=== PATIENT | female | born 1955 | race Caucasian/White ===

== ENCOUNTER 2018-08-24 13:46 | Emergency (ER) | payer BC ==
[2018-08-24] MEDS ORDERED: Levalbuterol 0.63MG/3ML NEB* UNIT OF USE INH ONE (14:06)
[2018-08-24] MEDS ORDERED: Albuterol/Ipratropium NEB.SOL* Albuterol 2.5 MG/Ipratropium 0.5 MG 3 ML ONE (14:08)
[2018-08-24] MEDS ORDERED: Albuterol/Ipratropium NEB.SOL* Albuterol 2.5 MG/Ipratropium 0.5 MG 3 ML INH ONE (14:13)
--- NOTE | 2018-08-24 14:15 | UC ---
Respiratory Complaint HPI - HPI Summary HPI Summary: Started w/ 3 days of cold/flu symptoms and then started w/ sob and cough assoc. w/ mucus. Had trouble getting air and clearing her throat. pt is heavy smoker did not get flu shot this year. last cigarette 4 days ago. - History of Current Complaint Stated Complaint: SOB,COUGH Time Seen by Provider: 08/24/18 14:13 Hx Obtained From: Patient ?: No Onset/Duration: Sudden Onset - Allergies/Home Medications Allergies/Adverse Reactions: Allergies Allergy/AdvReac Type Severity Reaction Status Date / Time sodium pentithal Allergy Unknown Unknown Uncoded 04/22/16 09:17 Reaction Details PMH/Surg Hx/FS Hx/Imm Hx Previously Healthy: Yes Respiratory History: Bronchitis - Surgical History Surgical History: None - Family History Known Family History: Positive: Hypertension, Diabetes - Social History Alcohol Use: None Substance Use Type: None Smoking Status (MU): Current Every Day Smoker Type: Cigarettes Amount Used/How Often: 1/4 ppd Length of Time of Smoking/Using Tobacco: 25 + YEARS Have You Smoked in the Last Year: Yes Review of Systems All Other Systems Reviewed And Are Negative: Yes Constitutional: Negative: Fever, Chills, Fatigue Skin: Negative: Rash ENT: Positive: Other - 'LOTS OF PHLEGM IN THROAT THAT MAKES ME GAG'. Respiratory: Positive: Shortness Of Breath, Cough Cardiovascular: Negative: Chest Pain Neurological: Negative: Headache, Weakness Physical Exam Triage Information Reviewed: Yes Appearance: No Pain Distress, Thin Vital Signs Reviewed: Yes Respiratory: Positive: No accessory muscle use, Respiratory distress, Decreased breath sounds, Wheezing Cardiovascular Exam: Normal Neurological: Positive: Alert, Other: - able to speak slowly as she caught her breath Skin: Negative: Rashes Respiratory Course/Dx - Course Course Of Treatment: SOB and cough in a heavy smoker acute. Started duoneb quickly and nasal O2 but her oxygen level never improved past 91-92. It was thought she should go to ED via ambulance as they could care for her better there. Pt. was adamant that she did not want to go due to cost. I explained ambulance is there to help her breath should it be too much for her. they could intubate her while driving to hospital should this be needed and keep her on oxygen. pt still declined and left AMA but will be going to ED. She verbalized understanding that her driving under this condition could lead to , worsening of symptoms, and harm of others. - Differential Dx/Diagnosis Differential Diagnosis/HQI/PQRI: Asthma, Bronchitis, Lower Resp Infection, Other - resp dis Provider Diagnosis: Hypoxia, Tachycardia, Shortness of breath Discharge - Sign-Out/Discharge Documenting (check all that apply): Patient Departure All imaging exams completed and their final reports reviewed: No Studies - Discharge Plan Condition: Fair Disposition: AGAINST MEDICAL ADVICE Patient Education Materials: Shortness of Breath (ED) Referrals: Philip Perera MD [Primary Care Provider] - Additional Instructions: please go to emergency room via ambulance. - Billing Disposition and Condition Condition: FAIR Disposition: Against Medical Advice
[2018-08-24 14:25] VITALS: BP 138/88
== END 2018-08-24 14:30 | disposition left against medical advice (07) ==
LOC: UCEAST 13:46
DX: R09.02 Hypoxemia (principal); R00.0 Tachycardia, unspecified; R06.02 Shortness of breath; Z88.4 Allergy status to anesthetic agent; F17.210 Nicotine dependence, cigarettes, uncomplicated
CPT/HCPCS: 99212; A9270-GY; G0463

== ENCOUNTER 2018-08-24 14:41 | Inpatient (IN) | payer BC ==
[2018-08-24] MEDS ORDERED: Albuterol/Ipratropium NEB.SOL* Albuterol 2.5 MG/Ipratropium 0.5 MG 3 ML INH ONE (15:17)
[2018-08-24] MEDS ORDERED: methylPREDNISolone 125 MG* 2 ML VIAL IV ONE (15:17)
--- NOTE | 2018-08-24 15:20 | ED ---
Shortness of Breath - HPI Summary HPI Summary: A 62 y/o female presents to the ED c/o SOB. In the ED room, the patient has pulse of 78 BPM, O2 saturation of 96%, and blood pressure of 168/93. As per triage, "Pt referred to ED by [facility] for c/o shortness of breath and hypoxia. Pt was given Duoneb tx at [facility] and says she actually feels much better". According to the patient, her symptoms started out with flu-like symptoms since such as coughing up clear flem, body aches, etc. She stated that around 1100 today she had difficult breathing. She noted that she has no history with COPD or asthma. Patient is a heavy everyday smoker as she smokes 3-10 cigarettes per day. She noted that she was given an treatment at which made her feel better. At she only received the treatment, no scans, screens, or any other medications were give. She noted that 2 years ago she had bronchopneumonia which feels similar to what she has now. - History of Current Complaint Chief Complaint: EDShortnessOfBreath Time Seen by Provider: 08/24/18 14:49 Hx Obtained From: Patient Onset/Duration: Sudden Onset, Lasting Days, Still Present Timing: Constant Current Severity: None Dyspnea At: Rest Aggrevating Factors: Nothing Alleviating Factors: Nothing Associated Signs & Symptoms: Cough (Productive) - Allergy/Home Medications Allergies/Adverse Reactions: Allergies Allergy/AdvReac Type Severity Reaction Status Date / Time sodium pentithal Allergy Unknown Unknown Uncoded 04/22/16 09:17 Reaction Details PMH/Surg Hx/FS Hx/Imm Hx Endocrine/Hematology History: Denies: Hx Diabetes, Hx Thyroid Disease Cardiovascular History: Denies: Hx Hypertension Respiratory History: Reports: Hx Pneumonia Denies: Hx Asthma, Hx Chronic Obstructive Pulmonary Disease (COPD) GI History: Denies: Hx Ulcer Sensory History: Reports: Hx Contacts or Glasses Opthamlomology History: Reports: Hx Contacts or Glasses - Cancer History Cancer Type, 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 - Surgical History Surgery Procedure, Year, and Place: CYST REMOVAL Infectious Disease History: No Infectious Disease History: Denies: Hx Clostridium Difficile, Hx Hepatitis, Hx Human Immunodeficiency Virus (HIV), Hx of Known/Suspected MRSA, Hx Shingles, Hx Tuberculosis, Hx Known/ Suspected VRE, Hx Known/Suspected VRSA, History Other Infectious Disease, Traveled Outside the [place] in Last 30 Days - Family History Known Family History: Positive: Hypertension, Diabetes - Social History Alcohol Use: None Substance Use Type: Reports: None Smoking Status (MU): Current Every Day Smoker Type: Cigarettes Amount Used/How Often: 1/4 ppd Length of Time of Smoking/Using Tobacco: 25 + YEARS Have You Smoked in the Last Year: Yes Review of Systems Negative: Fever Positive: Shortness Of Breath, Cough Positive: Myalgia - BODY ACHES All Other Systems Reviewed And Are Negative: Yes Physical Exam - Summary Physical Exam Summary: VITAL SIGNS: Reviewed. GENERAL: Patient is a well-developed and nourished female who is lying comfortable in the stretcher. Patient is not in any acute respiratory distress. HEAD AND FACE: No signs of trauma. No ecchymosis, hematomas or skull depressions. No sinus tenderness. EYES: PERRLA, EOMI x 2, No injected conjunctiva, no nystagmus. EARS: Hearing grossly intact. Ear canals and tympanic membranes are within normal limits. MOUTH: Oropharynx within normal limits. NECK: Supple, trachea is midline, no adenopathy, no JVD, no carotid bruit, no c- spine tenderness, neck with full ROM. CHEST: Symmetric, no tenderness at palpation LUNGS: Bilateral crackles and wheezing. CVS: Regular rate and rhythm, S1 and S2 present, no murmurs or gallops appreciated. ABDOMEN: Soft, non-tender. No signs of distention. No rebound no guarding, and no masses palpated. Bowel sounds are normal. EXTREMITIES: FROM in all major joints, no edema, no cyanosis or clubbing. NEURO: Alert and oriented x 3. No acute neurological deficits. Speech is normal and follows commands. SKIN: Dry and warm Triage Information Reviewed: Yes Vital Signs On Initial Exam: Initial Vitals Temp Pulse Resp BP Pulse Ox 98.4 F 83 18 149/62 92 08/24/18 14:44 08/24/18 14:44 08/24/18 14:44 08/24/18 14:44 08/24/18 14:44 Vital Signs Reviewed: Yes Diagnostics - Vital Signs Vital Signs Temp Pulse Resp BP Pulse Ox 08/24/18 14:55 93 08/24/18 14:52 73 168/93 90 08/24/18 14:44 98.4 F 83 18 149/62 92 - Laboratory Result Diagrams: 08/25/18 06:30 08/24/18 16:35 Lab Statement: Any lab studies that have been ordered have been reviewed, and results considered in the medical decision making process. - Radiology CXR Radiology Interpretation Completed By: Radiologist Summary of Radiographic Findings: No radiographic evidence of acute cardiopulmonary disease. ED PHYSICIAN REVIEWED THIS RADIOLOGY REPORT. - EKG 1540 Cardiac Rate: NL - 64 BPM EKG Rhythm: Sinus Rhythm - 64 BPM Summary of EKG Findings: NO ST ELEVATIONS. Course/Dx - Course Assessment/Plan: A 62 y/o female presents to the ED c/o SOB. In the ED room, the patient has pulse of 78 BPM, O2 saturation of 96%, and blood pressure of 168 /93. As per triage, "[facility] for [facility]/o shortness of breath and hypoxia. Pt was given duoneb tx at [facility] and says she actually feels much better ". According to the patient, her symptoms started out with flu-like symptoms since such as coughing up clear flem, body aches, etc. She stated that around 1100 today she had difficult breathing. She noted that she has no history with COPD or asthma. Patient is a heavy everyday smoker as she smokes 3- 10 cigarettes per day. She noted that she was given an treatment at which made her feel better. At she only received the treatment, no scans, screens, or any other medications were given. She noted that 2 years ago she had bronchopneumonia which feels similar to what she has now. Blood work without any significant abnormality except for WBCs of 12.9, sodium is 134, platelets 100, d-dimer is 236, and CRP is a 57.6. The patient was given IV fluids, multiple Duonebs and Solu-Medrol and the symptoms have improved however the patients O2 sat without oxygen decreases to 87%. I discussed the case with Dr. Dave from the hospital services was accepted the patient for admission. Patient is hemodynamically stable alert and oriented 3. - Diagnoses Provider Diagnoses: COPD exacerbation - Physician Notifications Discussed Care of Patient With: Stewart Madrid Time Discussed With Above Provider: 18:35 Instructed by Provider To: Other - ACCEPTS PATIENT FOR ADMISSION. Discharge - Sign-Out/Discharge Documenting (check all that apply): Patient Departure - ADMIT, Sign-Out Patient - CLAIRE Signing out patient TO: Stewart Madrid Receiving patient FROM: Lyle Yap - Discharge Plan Condition: Stable Disposition: ADMITTED TO [facility] - Billing Disposition and Condition Condition: STABLE Disposition: Admitted to [facility] - Attestation Statements Document Initiated by Scribe: Yes Documenting Scribe: Carlos Sharma Provider For Whom Cely is Documenting (Include Credential): Lyle Yap MD Scribe Attestation: ICarlos, scribed for Lyle Yap MD on 08/25/18 at 0822. Scribe Documentation Reviewed: Yes Provider Attestation: The documentation as recorded by the scribeCarlos accurately reflects the service I personally performed and the decisions made by me, Lyle Yap MD Status of Scribe Document: Viewed Attestations Scribe Attestation: IDr. Yap personally performed the services described in this documentation as scribed in my presence and it is both accurate and complete. User Type: Provider with Scribe Provider Attestation: The documentation recorded by the scribe accurately reflects the service I personally performed and the decisions made by me.
[2018-08-24 16:44] LABS: ABS Basophils 0 10^3/ul (0-0.2); ABS Eosinophils 0.2 10^3/ul (0-0.6); ABS Lymphocytes 1.7 10^3/ul (1.0-4.8); ABS Nucleated RBC 0 10^3/ul; Eosinophil % 1.4 %; Hematocrit 44 % (35-47); Hemoglobin 14.9 g/dl (12.0-16.0); Lymphocyte % 13.4 %; Mean Corpuscular HGB Conc 34 g/dl (31-36); Mean Corpuscular Hemoglobin 30 pg (27-31); Mean Corpuscular Volume 90 fL (80-97); Mean Platelet Volume 9.8 fL (7.4-10.4); Nucleated Red Blood Cells % 0.1; Platelet Count 168 10^3/ul (150-450); Red Blood Count 4.95 10^6/ul (4.00-5.40); Red Cell Distribution Width 13 % (10.5-15); White Blood Count 12.9 10^3/ul (3.5-10.8)
[2018-08-24 17:22] LABS: Albumin 4.2 g/dL (3.2-5.2); Albumin/Globulin Ratio 1.4 (1-3); BUN/Creatinine Ratio 12.9 (8-20); C Reactive Protein 57.68 mg/L (<8.01); Calcium 9.1 mg/dL (8.6-10.3); EGFR Non-African American 85.1 (>60); Potassium 3.7 mmol/L (3.5-5.0); Total Bilirubin 0.6 mg/dL (0.2-1.0); Total Protein 7.2 g/dL (6.4-8.9)
[2018-08-24] MEDS: Albuterol/Ipratropium NEB.SOL* Albuterol 2.5 MG/Ipratropium 0.5 MG 3 ML INH SCH ×2 (18:59→19:17)
[2018-08-24] MEDS ORDERED: Nicotine Inhaler* 10 MG AMP INH PRN (20:48)
[2018-08-24] MEDS ORDERED: Azithromycin TAB* 250 MG PO ONE (20:51)
[2018-08-24] MEDS ORDERED: Acetaminophen TAB* 325 MG PO PRN (20:56)
[2018-08-24] MEDS: Heparin VIAL(*) 5000 UNITS/ML VIAL (FIVE THOUSAND) SUBCUT SCH (22:56)
--- NOTE | 2018-08-25 00:21 | HP ---
CC: Dr. Philip Perera * HISTORY AND PHYSICAL: DATE OF ADMISSION: 08/24/18. PRIMARY CARE PROVIDER: Dr. Philip Perera. ATTENDING PHYSICIAN: Dr. Antonio Ellis * (dictated by Indy Alonso NP). CHIEF COMPLAINT: Shortness of breath. HISTORY OF PRESENT ILLNESS: Ms. Layne is a 62-year-old female with no significant past medical history, who states that she developed flu-like symptoms 2 days ago with what she described as whole body aches, feeling blah and coughing. She was taking [id number] cold medications with no relief. She denies any fevers, chills, chest pain, nasal congestion, abdominal pain, dysuria, nausea, vomiting, diarrhea. She states this morning, she developed significant shortness of breath at rest. She does have a significant smoking history. Due to her symptoms, she presented to the emergency room for further evaluation. While in the emergency room, she had DuoNebs x2 and IV Solu-Medrol and her shortness of breath resolved. She had labs that were fairly unremarkable. She had a slightly elevated D-dimer at 236, CRP of 57.68. Chest x-ray with no acute findings. Slightly elevated white blood cell count of 12.9. Due to her presentation, the hospitalists were asked to evaluate for admission. PAST MEDICAL HISTORY: None. PAST SURGICAL HISTORY: None. HOME MEDICATIONS: Include Motrin 600 mg oral every 6 hours as needed for fever or pain. ALLERGIES: SODIUM PENTOTHAL. FAMILY HISTORY: She denies any family history of coronary artery disease and mother with a history of diabetes, sister with a history of breast cancer. SOCIAL HISTORY: She is a current smoker, smoking currently a half a pack a day. She has at least a 40-year smoking history and has varied how much she smokes over the years. She denies alcohol or recreational drug use. Her mother , Gracie Ding will be her surrogate decision maker in the event she is unable to make decisions for herself. REVIEW OF SYSTEMS: I performed an 11-point review of systems. All the pertinent positives and negatives are mentioned in the history of present illness. The remaining review of systems are negative. PHYSICAL EXAMINATION GENERAL APPEARANCE: She is alert, pleasant, and appears to be in no acute distress. VITAL SIGNS: Temperature 98.4, heart rate 120, respiratory rate 20, O2 sat 88% on room air, blood pressure 127/64. HEENT: Normocephalic, atraumatic. Pupils are equal and reactive to light. Extraocular movements are intact. RESPIRATORY: There is no accessory muscle use. There is very minimum air flow heard, but some wheezing is noted. CARDIOVASCULAR: Regular rate and rhythm. Tachycardic. S1, S2 present. There are no murmurs, rubs, or gallops heard. ABDOMEN: Soft, nontender, nondistended. There are bowel sounds present x4. EXTREMITIES: No lower extremity edema. DP and PT pulses are 2+ and symmetric. MUSCULOSKELETAL: No clubbing or cyanosis noted. NEUROLOGIC: Alert and oriented x4. Cranial nerves II through XII are grossly intact. PSYCHOLOGIC: Calm and cooperative. SKIN: There are no rashes or abnormalities seen. DIAGNOSTIC STUDIES/LABORATORY DATA: Sodium 134, potassium 3.7, chloride 100, CO2 of 23, BUN 9, creatinine 0.70, glucose 128. White blood cell count 12.9, hemoglobin 14.9, hematocrit 44, and platelet count 168. D-dimer 236. CRP 57.68. EKG shows a sinus rhythm, rate of 64. There are no acute signs of ischemia. There are no previous EKGs for comparison. Chest x-ray from today. Radiologist's impression: No radiographic evidence for acute cardiopulmonary disease. IMPRESSION: Ms. Layne is a 62-year-old female with no significant past medical history, who presented to the emergency room after not feeling well for 2 days with complaints of shortness of breath. She will be admitted on observation for chronic obstructive pulmonary disease exacerbation. ASSESSMENT/PLAN: 1. Shortness of breath. I suspect this is secondary to a chronic obstructive pulmonary disease exacerbation. She does not have a formal chronic obstructive pulmonary disease diagnosis, but in the setting of her smoking history, I believe this is a chronic obstructive pulmonary disease exacerbation. She will be on Xopenex nebulizers every 6 hours. I am going to avoid albuterol in the setting of her tachycardia. She received Solu-Medrol in the ER. We will continue her on 40 mg of prednisone. Also placed her on azithromycin. Her shortness of breath has resolved and she is feeling much better in the emergency room. I do not suspect that this is a pulmonary embolism. We will do a rapid influenza test now. 2. Elevated D-dimer. She does have a slightly elevated D-dimer, but has no leg swelling or pain and has not had any recent travel. We are going to hold on a CT of her chest for now. As previously mentioned, I believe this is a chronic obstructive pulmonary disease exacerbation. 3. Tobacco abuse. Encouraged smoking cessation. She will have nicotine replacement as needed. 4. Fluids, electrolytes, and nutrition. Regular diet. 5. Code status. Full code. 6. DVT prophylaxis. She is at a high risk. She is on subcu heparin. 7. Disposition. Observation. TIME SPENT: Time spent for this admission was approximately 60 minutes, greater than half of that was spent with the patient discussing medications, past medical history, the events leading up to her arrival today, and performing a physical examination. The case has been reviewed with the attending , Dr. Ellis, who agrees with the plan of care. INDY ALONSO, AILYN [id number]/[facility] #: [id number] FILIPE
[2018-08-25] MEDS: Levalbuterol 0.63MG/3ML NEB* UNIT OF USE INH SCH ×5 (01:02→23:35)
[2018-08-25] MEDS: Heparin VIAL(*) 5000 UNITS/ML VIAL (FIVE THOUSAND) SUBCUT SCH ×3 (05:56→20:35)
[2018-08-25 06:45] LABS: ABS Basophils 0 10^3/ul (0-0.2); ABS Eosinophils 0 10^3/ul (0-0.6); ABS Lymphocytes 1.3 10^3/ul (1.0-4.8); ABS Neutrophils 9.6 10^3/ul (1.5-7.7); ABS Nucleated RBC 0 10^3/ul; Eosinophil % 0 %; Hematocrit 40 % (35-47); Hemoglobin 13.5 g/dl (12.0-16.0); Lymphocyte % 10.9 %; Mean Corpuscular HGB Conc 34 g/dl (31-36); Mean Corpuscular Hemoglobin 30 pg (27-31); Mean Corpuscular Volume 89 fL (80-97); Mean Platelet Volume 10.6 fL (7.4-10.4); Nucleated Red Blood Cells % 0.1; Platelet Count 181 10^3/ul (150-450); Red Blood Count 4.52 10^6/ul (4.00-5.40); Red Cell Distribution Width 13 % (10.5-15)
[2018-08-25] MEDS ORDERED: Levalbuterol 0.63MG/3ML NEB* UNIT OF USE INH PRN (07:25)
[2018-08-25] MEDS: predniSONE TAB* 20 MG PO SCH (08:55)
[2018-08-25] MEDS: Azithromycin TAB* 250 MG PO SCH (08:55)
--- NOTE | 2018-08-25 13:17 | PN ---
Subjective Date of Service: 08/25/18 Interval History: Patient reports today she felt well enough to go home this morning but now is feeling a little worse with cough and increase sputum production (not new). She ambulated in hallway w/o oxygen and was noted to have O2 sat 79%. She reports wheezing. Denies SOB. No CP. Reports nasal congestion and runny nose. Harsh cough with increased sputum production - reporting sputum was white now has turned to green/yellow. Denies fevers. Reports she did have body aches initially but those have resolved. Reports good appetite. No N/V/D. Objective Active Medications: Acetaminophen (Tylenol Tab*) 650 mg PO Q4H PRN PRN Reason: FEVER/PAIN Azithromycin (Zithromax Tab*) 250 mg PO DAILY [facility] Stop: 08/28/18 09:01 Last Admin: 08/25/18 08:55 Dose: 250 mg Heparin Sodium (Porcine) (Heparin Vial(*)) 5,000 units SUBCUT Q8HR [facility] Last Admin: 08/25/18 05:56 Dose: 5,000 units Levalbuterol HCl (Xopenex 0.63mg/3ml Neb*) 0.63 mg INH RT.[id number] AWAKE PRN PRN Reason: SOB/WHEEZING Nicotine (Nicotine Inhaler*) 10 mg INH Q2H PRN PRN Reason: CRAVING Prednisone (Deltasone Tab*) 40 mg PO DAILY [facility] Last Admin: 08/25/18 08:55 Dose: 40 mg Vital Signs - 8 hr 08/25/18 08/25/18 08/25/18 07:10 08:36 13:00 Temperature 98.0 F Pulse Rate 74 71 Respiratory 14 20 Rate Blood Pressure 117/62 (mmHg) O2 Sat by Pulse 91 88 84 Oximetry Oxygen Devices in Use Now: None Appearance: 62 yo female sitting up in bed watching TV A+O x3 in NAD Eyes: No Scleral Icterus, PERRLA Ears/Nose/Mouth/Throat: Mucous Membranes Moist Neck: NL Appearance and Movements; NL JVP Respiratory: Symmetrical Chest Expansion and Respiratory Effort, - - diminished throughout, exp wheezing Cardiovascular: NL Sounds; No Murmurs; No JVD, RRR, No Edema Abdominal: NL Sounds; No Tenderness; No Distention, No Hepatosplenomegaly Extremities: No Edema, No Clubbing, Cyanosis Skin: No Rash or Ulcers, No Nodules or Sclerosis Neurological: Alert and Oriented x 3, NL Sensation, NL Gait, NL Muscle Strength and Tone Lines/Tubes/Other Access: Clean, Dry and Intact Peripheral IV Nutrition: Taking PO's Result Diagrams: 08/25/18 06:30 08/24/18 16:35 Microbiology and Other Data: Microbiology 08/24/18 21:25 Influenza Types A,B Antigen - Final Nasal Specimen received for Influenza A/B Molecular testing Assess/Plan/Problems-Billing Assessment: 62 yo female with PMH current long-term tobacco abuse who presents on 08/24/18 with c/o recent flu like symptoms starting 2 days prior to admission who then developed significant SOB at rest and came to the ER on 08/24 for further evaluation of shortness of breath found to be hypoxic - Patient Problems (1) Acute respiratory failure with hypoxia Comment: - COPD exacerbation/Acute Bronchitis with viral like symptoms body aches, rhinnorhea, nasal congestion. Low suspicion for PE. Continue to be hypxic on room air, very diminished throughout with wheezing. Requiring supplemental oxygen 2L NC - attempt to titrate daily - Influenza A/B negative - chest xray negative for acute process - continue aggressive pulmonary tolieting - Flutter valve - Azithromycin, prednisone, start mucinex - obtain sputum cx - smoking cessation - would benefit from Pulm referral at discharge - pt agrees. No offical dx of COPD but is a long time smoker (2) Tobacco abuse disorder Comment: - smoking cessation coundeling 10 minutes - pt reports intrest to quit - Nicotine supplementation (3) DVT prophylaxis Comment: HSQ (4) Patient is full code Status and Disposition: OBV. Would meet for inpatient. Home when medically stable
[2018-08-25] MEDS: guaiFENesin ER TAB 600 MG PO SCH (20:35)
[2018-08-26] MEDS: Levalbuterol 0.63MG/3ML NEB* UNIT OF USE INH SCH ×5 (03:24→21:18)
[2018-08-26] MEDS: Heparin VIAL(*) 5000 UNITS/ML VIAL (FIVE THOUSAND) SUBCUT SCH ×3 (05:19→20:03)
[2018-08-26 07:34] LABS: ABS Basophils 0 10^3/ul (0-0.2); ABS Eosinophils 0 10^3/ul (0-0.6); ABS Lymphocytes 2.7 10^3/ul (1.0-4.8); ABS Monocytes 1.3 10^3/ul (0-0.8); ABS Neutrophils 9.4 10^3/ul (1.5-7.7); ABS Nucleated RBC 0 10^3/ul; Eosinophil % 0.2 %; Hematocrit 43 % (35-47); Hemoglobin 14.4 g/dl (12.0-16.0); Mean Corpuscular HGB Conc 34 g/dl (31-36); Mean Corpuscular Hemoglobin 30 pg (27-31); Mean Corpuscular Volume 89 fL (80-97); Mean Platelet Volume 10.6 fL (7.4-10.4); Nucleated Red Blood Cells % 0.2; Platelet Count 188 10^3/ul (150-450); Red Blood Count 4.78 10^6/ul (4.00-5.40); Red Cell Distribution Width 13 % (10.5-15); White Blood Count 13.5 10^3/ul (3.5-10.8)
[2018-08-26 07:47] LABS: BUN/Creatinine Ratio 23.6 (8-20); Calcium 8.9 mg/dL (8.6-10.3); EGFR Non-African American 82.3 (>60); Potassium 3.9 mmol/L (3.5-5.0)
[2018-08-26] MEDS: Azithromycin TAB* 250 MG PO SCH (08:16)
[2018-08-26] MEDS: guaiFENesin ER TAB 600 MG PO SCH ×2 (08:16→20:03)
[2018-08-26] MEDS: predniSONE TAB* 20 MG PO SCH (08:16)
[2018-08-26] MEDS ORDERED: Spiriva Inhaler DEVICE* 1 EACH DEVICE INH ONE (13:00)
--- NOTE | 2018-08-26 17:49 | PN ---
Subjective Date of Service: 08/26/18 Interval History: Ms. Layne is feeling better today. She was hopeful to be able to return home today. She denies any SOB on rest or with exertion. She has been on RA at rest, though per nursing, desated into the 80s on RA while ambulating. She has a very productive cough with yellow sputum. Denies CP, N/V/D. Appetite is good. She would like her tele monitor and PIV removed. Family History: Unchanged from Admission Social History: Unchanged from Admission Past Medical History: Unchanged from Admission Objective Active Medications: Acetaminophen (Tylenol Tab*) 650 mg PO Q4H PRN FEVER/PAIN Azithromycin (Zithromax Tab*) 250 mg PO DAILY [facility] Guaifenesin (Mucinex*) 1,200 mg PO BID [facility] Heparin Sodium (Porcine) (Heparin Vial(*)) 5,000 units SUBCUT Q8HR [facility] Levalbuterol HCl (Xopenex 0.63mg/3ml Neb*) 0.63 mg INH RT.[id number] AWAKE [facility] Mometasone Furoate/Formoterol Fumar (Dulera 200/5 Mdi*) 2 puff INH BID [facility] Nicotine (Nicotine Inhaler*) 10 mg INH Q2H PRN CRAVING Prednisone (Deltasone Tab*) 40 mg PO DAILY [facility] Tiotropium [place] (Spiriva Cap.Inh*) 1 cap INH DAILY [facility] Vital Signs - 8 hr 08/26/18 08/26/18 10:55 11:10 Temperature 97.6 F Pulse Rate 57 60 Respiratory 16 16 Rate Blood Pressure 148/80 (mmHg) O2 Sat by Pulse 91 93 Oximetry Oxygen Devices in Use Now: None Appearance: Elderly female sitting in bed in NAD Eyes: No Scleral Icterus Ears/Nose/Mouth/Throat: Mucous Membranes Moist Neck: NL Appearance and Movements; NL JVP, Trachea Midline Respiratory: Symmetrical Chest Expansion and Respiratory Effort, - - Severely diminished throughout Cardiovascular: NL Sounds; No Murmurs; No JVD, RRR Abdominal: NL Sounds; No Tenderness; No Distention Extremities: No Edema Skin: No Rash or Ulcers Neurological: Alert and Oriented x 3, NL Gait Nutrition: Taking PO's Result Diagrams: 08/26/18 07:09 08/26/18 07:09 Assess/Plan/Problems-Billing Assessment: Ms. Layne is a 62 yo female with PMH current long-term tobacco abuse who presents on 08/24/18 with c/o recent flu like symptoms starting 2 days prior to admission who then developed significant SOB at rest and came to the ER on 08/24 for further evaluation of shortness of breath found to be hypoxic. - Patient Problems (1) Acute respiratory failure with hypoxia Code(s): J96.01 - ACUTE RESPIRATORY FAILURE WITH HYPOXIA Comment: - Secondary to COPD exacerbation and viral bronchitis - Continues to be hypxic on room air, very diminished throughout, requiring supplemental oxygen - Sputum culture pending - Influenza A/B negative - Chest xray negative for acute process - Continue aggressive pulmonary tolieting, flutter valve - Azithromycin, prednisone, mucinex (2) COPD exacerbation Code(s): J44.1 - CHRONIC OBSTRUCTIVE PULMONARY DISEASE W (ACUTE) EXACERBATION Comment: - Secondary to viral bronchitis - Has not officially been diagnosed with COPD, though has a significant smoking history and hyperinflation on CxR - Would highly benefit from Pulmonology referral at discharge for formal diagnosis with PFTs - Continue azithromycin, prednisone - Start Dulera and Spiriva (3) Tobacco abuse disorder Current Visit: Yes Status: Acute Code(s): Z72.0 - TOBACCO USE SNOMED Code( s): 183344666 Comment: - Smoking cessation - Nicotine replacement (4) DVT prophylaxis Comment: - Heparin SQ (5) Full code status Code(s): Z78.9 - OTHER SPECIFIED HEALTH STATUS Comment: Status and Disposition: Inpatient for continued hypoxia. Anticipate d/c home when able to maintain sats in the 90s on RA. Possible d/c tomorrow. Attending: Lily Olson
[2018-08-26] MEDS: Mometasone/Formoter 200/5 MDI INH SCH (21:18)
[2018-08-27] MEDS: Levalbuterol 0.63MG/3ML NEB* UNIT OF USE INH SCH ×2 (01:56→07:47)
[2018-08-27] MEDS: Heparin VIAL(*) 5000 UNITS/ML VIAL (FIVE THOUSAND) SUBCUT SCH (05:09)
[2018-08-27] MEDS: Mometasone/Formoter 200/5 MDI INH SCH (07:47)
[2018-08-27 08:03] VITALS: BP 161/70
[2018-08-27] MEDS ORDERED: Tiotropium CAP.INH* CAP.INH/18 MCG (USE ORDER SET !) INH SCH (09:00)
[2018-08-27] MEDS: predniSONE TAB* 20 MG PO SCH (09:22)
[2018-08-27] MEDS: Azithromycin TAB* 250 MG PO SCH (09:22)
[2018-08-27] MEDS: guaiFENesin ER TAB 600 MG PO SCH (09:22)
--- NOTE | 2018-08-27 20:53 | DS ---
CC: Dr. Philip Perera. * DISCHARGE SUMMARY: DATE OF ADMISSION: 08/24/18 DATE OF DISCHARGE: 08/27/18 PRIMARY CARE PROVIDER: Dr. Philip Perera. ATTENDING PHYSICIAN: Dr. Brenda Dey * (dictated by Philomena Combs NP). PRIMARY DIAGNOSES: 1. Acute hypoxic respiratory failure. 2. Chronic obstructive pulmonary disease exacerbation. 3. Tobacco dependence. STUDIES WHILE IN THE HOSPITAL: 1. Chest x-ray on 08/24/18 reads as no radiographic evidence of acute cardiopulmonary disease. 2. EKG on 08/24/18 shows normal sinus rhythm with a rate of 64, QTc 441, no ischemic changes. HISTORY OF PRESENT ILLNESS AND HOSPITAL COURSE: Ms. Layne is a 62-year-old female, with no significant past medical history, who presented to the emergency room on 08/24/18 with complaints of shortness of breath. Please see the history and physical by Maru Paz NP, for a complete summary of the events leading up to this hospitalization. In short, the patient reported 2 days of flu- like symptoms with body aches, malaise, and cough. That morning, she noted significant shortness of breath at rest. She was noted to have an extensive smoking history. While in the emergency room, she received DuoNebs and Solu-Medrol and her shortness of breath resolved. Lab work was essentially unremarkable except for an elevated CRP of 57. The patient was admitted by the hospitalist service for acute hypoxic respiratory failure. On 08/25/18, the patient reported increased cough with increased sputum production and was noted to have an oxygen saturation of 79% on room air while ambulating. She ultimately required 2 L of oxygen at rest and while ambulating. Although the patient has not been formally diagnosed with COPD with pulmonary function testing, a COPD diagnosis was certainly warranted due to her extensive smoking history and presence of hyperinflation on chest x-ray. The patient continued to improve and on 08/26/18 was feeling somewhat better. She reported her shortness of breath had resolved. She was still noted to be hypoxic on room air while ambulating, but was no longer requiring oxygen at rest. She had a sputum culture which grew yeast and normal rosa. She was negative for flu A and flu B. She was started on Dulera and Spiriva for her COPD and was given nicotine replacement. She was placed on azithromycin, prednisone and Mucinex as well. As of today, the patient reports feeling much better. She is anxious to return home. I personally ambulated around the unit with the patient and she did desaturate to 85% on room air while ambulating. She is requiring 2 L of oxygen to maintain oxygen saturations in the 90s while ambulating, though is satting well on room air at rest. I advised the patient that this hypoxia is likely temporary due to this acute exacerbation. She was very adamant that she wanted to leave the hospital today and was agreeable to returning home with home oxygen. Lung sounds are severely diminished throughout, though she has no rhonchi or wheezing. She continues to have a productive cough, though reports that this has decreased. Ms. Layne is stable for discharge today. Vital signs are as follows: Temp 98.0 , heart rate 60, respiratory rate 14, oxygen saturation 92% on room air, blood pressure 137/67. DISCHARGES MEDICATIONS: New medications: 1. Albuterol MDI 2 puffs q.4 hours p.r.n. shortness of breath or wheezing. 2. Azithromycin 250 mg p.o. daily x1 day. 3. Advair 250/50 one puff b.i.d. 4. Nicotine patch 21 mg/24 hours transdermal daily. 5. Prednisone 10 mg tab p.o. taper daily (take 4 tabs for 3 days, then 3 tabs for 3 days, then 2 tabs for 3 days, then 1 tab for 3 days). 6. Spiriva 1 cap inhalation daily. Continued medications: Ibuprofen 800 mg p.o. q.6 hours p.r.n. headache. DISCHARGE PLAN: Ms. Layne will be discharged home. Activity will be as tolerated. Diet will be regular as tolerated. Medications are noted above. The patient has been prescribed albuterol and albuterol MDI. She has also been prescribed Advair and Spiriva for maintenance medications for her COPD. She has been prescribed a prednisone taper which she has been instructed to complete and she will need to complete 1 additional day of azithromycin to complete a total of 5 days of antibiotic therapy. She did request a prescription for nicotine patches and I provided her with that as well. She has been advised to use 2 L of oxygen while ambulating, though does not need to use oxygen at rest. She has been given a work note to be out of work until . She will need to follow up with her primary care provider in 4 to 7 days. I have advised her that she will likely also need to follow up with a computer network and systems engineer to have formal pulmonary function testing for her COPD diagnosis. The patient has been instructed to return to the emergency room or nearest hospital for any worsening of symptoms, shortness of breath, lightheadedness, dizziness, chest discomfort, high fevers, chills, night sweats, loss of consciousness or any other worrisome signs or symptoms. This is a summarized report of a complex medical history and hospital stay. For further details, please see the entire medical record. TIME SPENT: Approximately 45 minutes were spent on this discharge. PHILOMENA COMBS NP [id number]/[facility] #: [id number] FIL[place]
== END 2018-08-27 11:30 | disposition home or self-care (01) | DRG 140 ==
LOC: ED 14:41 → MED 20:28 → OBSVTOIN 08-25 13:49
PROVIDERS: ADMIT Internal Medicine; ATTEND Internal Medicine
DX: J44.1 Chronic obstructive pulmonary disease with (acute) exacerbation (principal); J96.01 Acute respiratory failure with hypoxia; J20.8 Acute bronchitis due to other specified organisms; J44.0 Chronic obstructive pulmonary disease with (acute) lower respiratory infection; F17.210 Nicotine dependence, cigarettes, uncomplicated; Z88.8 Allergy status to other drugs, medicaments and biological substances; Z85.828 Personal history of other malignant neoplasm of skin; Z87.01 Personal history of pneumonia (recurrent); Z82.49 Family history of ischemic heart disease and other diseases of the circulatory system; Z83.3 Family history of diabetes mellitus; Z80.3 Family history of malignant neoplasm of breast
CPT/HCPCS: 36415; 71046; 80048; 80053; 83605; 83880; 84484; 85025; 85379; 86140; 87040; 87070; 87205; 93005; 94640; 99284; 99406; A9270-GY; G0378; J1644; J2930; J7512

== ENCOUNTER → 2019-03-05 19:50 | Emergency (ER) | payer BC ==
[2019-03-05 19:54] VITALS: BP 162/80
== END | disposition left against medical advice (07) ==
LOC: ED 19:50
DX: R10.9 Unspecified abdominal pain (principal); Z53.21 Procedure and treatment not carried out due to patient leaving prior to being seen by health care provider